=== PATIENT | female | born 2000 | race Two or more races ===

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

== ENCOUNTER 2018-06-21 18:12 | Emergency (ER) | payer OTHER ==
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
[2018-06-21 19:28] VITALS: BP 124/68
== END 2018-06-21 19:29 | disposition home or self-care (01) ==
LOC: CED 18:12
DX: S16.1XXA Strain of muscle, fascia and tendon at neck level, initial encounter (principal); V49.49XA Driver injured in collision with other motor vehicles in traffic accident, initial encounter; Y92.410 Unspecified street and highway as the place of occurrence of the external cause
CPT/HCPCS: 99282-ER

== ENCOUNTER 2018-08-07 11:02 | Emergency (ER) | payer MEDICAID, OTHER ==
[2018-08-07 11:12] VITALS: BP 103/56
--- NOTE | 2018-08-07 11:28 | EDPHY ---
H & P Stated Complaint: PT. with left lymph node pain and swelling x3 days,chills Time Seen by Provider: 08/07/18 11:05 HPI/ROS: 18 yo F presents c/o sore area on her left neck that began 3 days ago, with some chills, and mild pain with swallowing. She has an appt with her primary care tomorrow. No cough. Review of systems General no fever pos chills no weakness HEENT no eye pain no eye discharge. No eye redness, no sore throat Respiratory no cough, no shortness of breath Cardiac no chest pain, no peripheral edema GI no abdominal pain, no diarrhea, no constipation, no nausea, no vomiting no flank pain, no hematuria, no dysuria Musculoskeletal no myalgias, no joint pain Heme no easy bruising, no easy bleeding Endo no polyuria, no polydipsia Skin no rashes, no pruritus Neuro no syncope, no dizziness, no headaches Psych is no suicidal ideation, no homicidal ideation Source: Patient, Family Exam Limitations: No limitations - Personal History LMP (Females 10-55): Extended Cycle BCP/Inj Current Tetanus Diphtheria and Acellular Pertussis (TDAP): Yes - Medical/Surgical History Hx Asthma: Yes Hx Chronic Respiratory Disease: No Hx Diabetes: No Hx Cardiac Disease: No Hx Renal Disease: No Hx Cirrhosis: No Hx Alcoholism: No Hx HIV/AIDS: No Hx Splenectomy or Spleen Trauma: No Other PMH: MEd hx-mild asthma. Surg-appy - Family History Significant Family History: No pertinent family hx - Social History Smoking Status: Never smoked Alcohol Use: None Drug Use: None - Physical Exam Exam: 18 yo F Alert and oriented in no acute distress nontoxic appearance, afebrile Atraumatic normocephalic Extraocular muscles intact, anicteric Neck-supple, left anterior cervical lymph node x 1 , with tenderness to palpation No posterior cervical lymphadenopathy Oropharynx positive enlarged left tonsils,no erythema, no uvular deviation, no purulent exudate, tolerating own secretions, no trismus Lungs clear to auscultation bilaterally Heart regular rate and rhythm Abdomen normoactive bowel sounds soft nontender Extremities no cyanosis clubbing edema Skin no rash Constitutional: Initial Vital Signs Temperature (C) 36.9 C 08/07/18 11:08 Heart Rate 76 08/07/18 11:08 Respiratory Rate 16 08/07/18 11:08 Blood Pressure 103/56 L 08/07/18 11:08 O2 Sat (%) 96 08/07/18 11:08 O2 Delivery Mode Room Air Allergies/Adverse Reactions: No Known Allergies Allergy (Verified 08/07/18 11:07) Home Medications: Medication Instructions Recorded Etonogestrel [Nexplanon] 08/07/18 Medical Decision Making ED Course/Re-evaluation: pt seen and evaluated for left neck pain with mild sore throat imp left cervical ln, viral pharyngitis Plan home symptomatic care recheck with pcp tomorrow Differential Diagnosis: differential diagnosis consided but not limited to: Strep pharyngitis, pharyngitis, lymphadenitis, mononucleosis, single swollen lymph node, viral syndrome Departure - Departure Disposition: Home, Routine, Self-Care Clinical Impression: Swollen lymph nodes Condition: Good Instructions: Lymphadenopathy (ED), Viral Syndrome (ED) Additional Instructions: rest, plenty of fluids, acetaminophen or ibuprofen as needed for the pain return to emergency for high fever, neck swelling or inability to swallow Referrals: NONE *PRIMARY CARE P,. [Primary Care Provider] - As per Instructions [facility] [Provider Group] - As per Instructions
== END 2018-08-07 11:31 | disposition home or self-care (01) ==
LOC: CED 11:02
DX: R59.0 Localized enlarged lymph nodes (principal)
CPT/HCPCS: 99282-ER

== ENCOUNTER → 2018-08-18 | Outpatient (CLI) | payer MEDICAID | LOC: CIMAGING 10:50 | PROVIDERS: ATTEND Family Medicine | DX: M25.561 Pain in right knee (principal); G89.29 Other chronic pain; M25.531 Pain in right wrist | CPT/HCPCS: 73110-PO; 73120-PO ==

== ENCOUNTER 2018-08-22 13:02 | Emergency (ER) | payer MEDICAID ==
[2018-08-22 13:17] VITALS: BP 117/68
--- NOTE | 2018-08-22 13:36 | EDPHY ---
H & P Time Seen by Provider: 08/22/18 13:06 HPI/ROS: This patient presents with the nonhealing foot wound to the right foot 10 days prior to arrival with removal of a mole at Dermatology. She has been using peroxide to clean the wound and notes that it is still open. She is concerned that she might have infection or some other complication that is causing the slow healing. She is accompanied by her mother today. She denies any significant pain to the area. She has noted no discharge. ROS: Constitutional: No fevers Integumentary: No other skin lesions or complaints 5 point review of symptoms is performed and otherwise negative with exception of pertinent positives and negatives listed in HPI and ROS Smoking Status: Never smoked Physical Exam: Physical Exam Vital signs are normal. General: No acute distress HEENT: Atraumatic. Eyes: Pupils equal and react to light. Extraocular motions are intact. Lungs: No respiratory distress. Cardiac: Brisk capillary refill is intact throughout. Pulses are 2+ and symmetric in the affected extremity. Skin: On the right foot patient has a 0.5 cm or so wound with granulation tissue at the base. The margins appear somewhat dry but there is no surrounding erythema warmth to touch fluctuance. Neuro: Alert and oriented x3 with no sensorimotor deficits. Initial differential diagnosis: Slow healing wound, doubt wound infection, Constitutional: Initial Vital Signs Temperature (C) 36.9 C 08/22/18 13:10 Heart Rate 73 08/22/18 13:10 Respiratory Rate 14 08/22/18 13:10 Blood Pressure 117/68 08/22/18 13:10 O2 Sat (%) 96 08/22/18 13:10 O2 Delivery Mode Room Air Allergies/Adverse Reactions: No Known Allergies Allergy (Verified 08/22/18 13:10) Home Medications: Medication Instructions Recorded Etonogestrel [Nexplanon] 08/07/18 MDM/Departure - MDM ED Course/Re-evaluation: Discussion: It appears that the wound is too dry. I suspect this is attributable to her regular use of peroxide. I counseled patient regarding this. There is no clinical evidence of infection currently. She has no underlying bony tenderness or other concerning findings. We cleaned the wound and applied bacitracin and then a breathe able the but likes type bandage and counseled regarding wound care. She will follow up with her tire repairer and/or primary care physician. She understands need to return should she develop redness, discharge, fevers or other concerns. - Depart Disposition: Home, Routine, Self-Care Clinical Impression: Wound of foot Condition: Good Instructions: Acute Wounds (ED) Additional Instructions: Diagnosis: Foot wound Plan: Clean wound with soapy and water twice daily. Bacitracin or Neosporin and band aid to cover wound . May take off during sleep. Ibuprofen and/or Tylenol for discomfort if needed. Apply warm packs to Foot 2-3 times a day in addition Avoid hydrogen peroxide during cleaning. Use soapy warm water instead. Follow up with tire repairer or your primary care physician. Return emergency department for any significant worsening despite the treatment plan Referrals: Jillian Richard, DO [Primary Care Provider] - As per Instructions
== END 2018-08-22 13:55 | disposition home or self-care (01) ==
LOC: CED 13:02
DX: Z98.890 Other specified postprocedural states (principal)
CPT/HCPCS: 99282-ER